=== PATIENT | male | born 1970 | race Caucasian/White ===

== ENCOUNTER → 2017-03-06 | Outpatient (CLI) | payer OTHER ==
[2017-03-06 07:06] LABS: HEMOGLOBIN 15.6 gm/dl (14.0-17.5); RED BLOOD COUNT 5.33 M/UL (4.20-5.50); WHITE BLOOD COUNT 7.4 K/UL (4.5-11.0)
[2017-03-06 07:23] LABS: BUN/CREATININE RATIO 12 (0-10)
== END ==
LOC: LAB 06:38
PROVIDERS: Family Medicine
DX: E11.42 Type 2 diabetes mellitus with diabetic polyneuropathy (principal); I10 Essential (primary) hypertension
CPT/HCPCS: 36415; 80053; 80061; 85025

== ENCOUNTER → 2017-05-23 | Outpatient (CLI) | payer OTHER | LOC: LAB 07:52 | DX: E11.42 Type 2 diabetes mellitus with diabetic polyneuropathy (principal); G57.11 Meralgia paresthetica, right lower limb | CPT/HCPCS: 36415; 82607; 82746; 83921; 84207; 84443; 86618 ==